=== PATIENT | female | born 1935 | race Caucasian/White ===

== ENCOUNTER 2017-11-23 12:02 | Outpatient (CLI) | END 2017-11-23 12:03 | disposition short-term general hospital (02) | LOC: AMBL 12:02 | PROVIDERS: ATTEND Emergency Medicine | DX: R53.1 Weakness (principal); R41.0 Disorientation, unspecified; R29.810 Facial weakness; R47.81 Slurred speech; E11.9 Type 2 diabetes mellitus without complications; I48.91 Unspecified atrial fibrillation ==